=== PATIENT | female | born 1965 | race Caucasian/White ===

== ENCOUNTER 2023-12-14 20:41 | Emergency (ER) | payer BC ==
[~2023-12-14] VITALS: Ht 167.6 cm; Wt 68.0 kg
[2023-12-14 20:47] VITALS: BP 134/82; TEMP 98.2
[2023-12-14] MEDS ORDERED: CYCL10TA9 PO (22:15)
[2023-12-14 22:28] VITALS: O2SAT 98
== END 2023-12-14 22:29 | disposition home or self-care (01) ==
LOC: ER 20:49
DX: S13.4XXA Sprain of ligaments of cervical spine, initial encounter (principal); Z88.0 Allergy status to penicillin; V49.49XA Driver injured in collision with other motor vehicles in traffic accident, initial encounter; Y93.89 Activity, other specified; Y92.89 Other specified places as the place of occurrence of the external cause; Y99.8 Other external cause status